=== PATIENT | male | born 1990 | race Caucasian/White ===

== ENCOUNTER 2021-01-01 08:16 | Emergency (ER) | payer OTHER, SELFPAY ==
--- NOTE | 2021-01-01 08:42 | ED.DENTAL ---
HPI - Dental/Oral General Chief complaint: Dental/Oral Stated complaint: tooth pain Time Seen by Provider: 01/01/21 08:42 Source: patient and RN notes reviewed Mode of arrival: ambulatory Limitations: no limitations History of Present Illness HPI Narrative: 30-year-old male presents to the [facility] with complaints of dental pain. Had a dental infection last [place] in the same area. Has not been able to see a dentist or oral surgeon due to insurance and cost. pain worse last night and trouble sleeping. No treatment [employer] Related Data Allergies Allergy/AdvReac Type Severity Reaction Status Date / Time No Known Allergies Allergy Verified 01/01/21 08:44 Review of Systems Review of Systems: All systems reviewed & are unremarkable except as noted in HPI and below Constitutional: Constitutional: Denies chills, Denies fatigue, Denies fever(s) and Denies weakness Eyes: Eyes: Denies no additional eye complaints, Denies change in vision and Denies photophobia ENT: Denies dysphagia, Denies epistaxis and Denies sore throat Comments: left lower dental pain Cardiovascular: Cardiovascular: Denies chest pain Respiratory: Respiratory: Denies chest congestion, Denies cough, Denies dyspnea and Denies wheezing Gastrointestinal: Gastrointestinal: Denies abdominal pain, Denies diarrhea, Denies nausea and Denies vomiting Musculoskeletal: Musculoskeletal: Denies back pain, Denies myalgias and Denies joint swelling Integumentary/Breasts: Skin/Breast: Denies pruritus and Denies rash Neurologic: Denies confusion, Denies vertigo, Denies dizziness, Denies headache(s), Denies focal weakness, Denies numbness and Denies weakness Psychiatric: Psychiatric: Denies anxiety and Denies depression Allergic/Immunologic: Allergic/Immunologic: Denies lip swelling, Denies throat swelling, Denies tongue swelling and Denies wheezing PMFSH Social History Social History Gender identity (if verbalized by the patient): Male Comments Patient denies any past medical history At the time of my signature, I reviewed and agree with the nursing past medical, surgical, social, and family history. There is no relevant family history pertinent to the patient complaint. Exam Narrative: Exam Narrative: GENERAL: This is a well-nourished, well-developed patient, in no apparent distress. HEAD: normocephalic, atraumatic. EYES: PERRL. Sclera clear/white. Vision is grossly intact. EARS: External ears normal, auditory canals clear and without drainage, TMs normal without perforation. Hearing grossly intact. NOSE: External nose normal with no obvious nasal discharge, nares without redness, no rhinorrhea. THROAT: Mucous membranes moist, posterior pharynx clear. NECK: Neck supple, non-tender without lymphadenopathy, masses or thyromegaly. CARDIOVASCULAR: Regular rate and rhythm without murmurs, gallops, or rubs. RESPIRATORY: Clear to auscultation. Breath sounds equal bilaterally. No wheezes, rales, or rhonchi. SKIN: warm, intact with no suspicious lesions or rash, good texture and turgor. NEURO: awake, alert, and oriented to person, place and time. There were no obvious focal neurologic abnormalities. HENMT: Teeth image: 1. Dental caries with swelling noted to the gingiva. 2. Tooth 14 is missing 3. Dental decay noted 4. Dental decay noted Course Vital Signs Vital signs: Vital Signs Temperature 97.9 F 01/01/21 08:48 Pulse Rate 61 01/01/21 08:48 Respiratory Rate 16 01/01/21 08:48 Blood Pressure 124/74 01/01/21 08:48 Pulse Oximetry 99 01/01/21 08:48 Temperature 97.9 F 01/01/21 08:48 Pulse Rate 61 01/01/21 08:48 Respiratory Rate 16 01/01/21 08:48 Blood Pressure 124/74 01/01/21 08:48 Pulse Oximetry 99 01/01/21 08:48 Reviewed, within defined limits MDM - Dental/Oral MDM Narrative Medical decision making narrative: Discharge instructions reviewed with patient, as well as provided in w
[2021-01-01 08:48] VITALS: BP 124/74; PULSE 61; RESP 16; TEMP 36.6; O2SAT 99
== END 2021-01-01 09:05 | disposition home or self-care (01) ==
PROVIDERS: Emergency Provider Nurse Practitioner
DX: K04.7 Periapical abscess without sinus (principal)
CPT/HCPCS: 99213; G0463